=== PATIENT | female | born 1995 | race Two or more races ===

== ENCOUNTER 2018-07-02 21:27 | Emergency (ER) | payer OTHER ==
[~2018-07-02] VITALS: Ht 165.1 cm; Wt 65.8 kg
[2018-07-02 21:50] VITALS: BP 118/59
[2018-07-02 22:20] LABS: APPEARANCE,URINE Clear (CLEAR); BILIRUBIN,URINE Negative (NEGATIVE); BLOOD, URINE Trace-intact Ery/uL (NEGATIVE); COLOR,URINE Yellow (YELLOW); KETONES,URINE 40 (NEGATIVE); LEUKOCYTE ESTERASE ,URINE Trace (NEGATIVE); NITRITE, URINE Negative (NEGATIVE); PH,URINE 5.5 (5.0-8.0); PROTEIN,URINE Negative (NEGATIVE); UGLUCOSE Negative (NEGATIVE); UROBILINOGEN,URINE 0.2 EU/dL (0.2)
[2018-07-03 00:06] LABS: BACTERIA,URINE Few /HPF (None Seen); RBC,URINE 0-2 /HPF (0-2); SQUAMOUS EPITHELIAL CELL,UR Few /HPF (None Seen)
== END 2018-07-02 23:19 | disposition home or self-care (01) ==
LOC: ER 21:31
DX: R30.0 Dysuria (principal)
CPT/HCPCS: 81000-TC; 84703-TC; 87086-TC; 87186-TC

== ENCOUNTER 2020-11-12 16:50 | Emergency (ER) | payer OTHER ==
[~2020-11-12] VITALS: Ht 165.1 cm; Wt 79.8 kg
[2020-11-12] MEDS ORDERED: LIDOCAINE 1%-EPI 1:100,000 20 ML VIAL ONE (17:49)
[2020-11-12] MEDS ORDERED: TDAP [DIPH/PERTUSSIS/TET] 0.5 ML VIAL IM ONE ×2 (18:00→18:20)
[2020-11-12] MEDS ORDERED: TRAMADOL HCL 50 MG TABLET PO ONE (18:00)
--- NOTE | 2020-11-12 18:00 | NUR ---
BIB SISTER C/O LOWER BACK LUMP STARTED FRIDAY. RATES PAIN 12/31. WILL CONTINUE TO MONITOR THE PATIENT.
--- NOTE | 2020-11-12 18:10 | NUR ---
URINE COLLECTED AND SENT TO THE LAB
[2020-11-12] MEDS ORDERED: TRAMADOL HCL 50 MG TABLET ONE (18:20)
[2020-11-12] MEDS ORDERED: SULF1TAB48 PO (18:51)
[2020-11-12] MEDS ORDERED: TRAM50TA2 PO (18:51)
[2020-11-12 19:32] VITALS: BP 120/60
--- NOTE | 2020-11-12 19:32 | NUR ---
Patient discharged to home in stable condition. Written and verbal after care instructions given. Patient verbalizes understanding of instruction.
== END 2020-11-12 19:33 | disposition home or self-care (01) ==
LOC: ER 16:54
DX: L05.01 Pilonidal cyst with abscess (principal)
CPT/HCPCS: 10080; 90471; 90715; 99283; A6403; A6407; J3490

== ENCOUNTER 2020-11-14 19:13 | Emergency (ER) | payer OTHER ==
[~2020-11-14] VITALS: Ht 165.1 cm; Wt 79.8 kg
[~2020-11-14 19:13] MED LIST: SULF1TAB48 PO; TRAM50TA2 PO
[2020-11-14 19:15] VITALS: BP 109/67
--- NOTE | 2020-11-14 19:25 | NUR ---
PT BIBS WITH C/O WOUND CHECK TOP OF BUTTOCK ABSCESS (PILONIDAL CYST). PT ALERT AND ORIENTED X3. WITH SPONTANEOUS NON LABORED BREATHING.
--- NOTE | 2020-11-14 19:52 | NUR ---
Patient discharged to home in stable condition. Written and verbal after care instructions given. Patient verbalizes understanding of instruction.
== END 2020-11-14 19:52 | disposition home or self-care (01) ==
LOC: ER 19:15
DX: Z48.01 Encounter for change or removal of surgical wound dressing (principal); Z79.899 Other long term (current) drug therapy
CPT/HCPCS: 99281; A6403

== ENCOUNTER 2022-02-11 18:20 | Emergency (ER) | payer OTHER ==
[~2022-02-11] VITALS: Ht 165.1 cm; Wt 86.2 kg
[2022-02-11] MEDS ORDERED: ACETAMINOPHEN 325 MG TABLET PO ONE (22:00)
[2022-02-11] MEDS ORDERED: GUAIFENESIN/D-METHORPHAN HB 5 ML UDC PO ONE (22:00)
[2022-02-11] MEDS ORDERED: GUAIFENESIN/D-METHORPHAN HB 5 ML UDC ONE (22:28)
[2022-02-11] MEDS ORDERED: ACETAMINOPHEN 325 MG TABLET ONE (22:28)
[2022-02-11] MEDS ORDERED: GUAI100S11 GT (23:34)
[2022-02-11] MEDS ORDERED: ACET-73 PO (23:34)
--- NOTE | 2022-02-11 23:37 | NUR ---
Patient discharged to home in stable condition. Written and verbal after care instructions given. Patient verbalizes understanding of instruction.
[2022-02-11 23:38] VITALS: BP 121/77
== END 2022-02-11 23:38 | disposition home or self-care (01) ==
LOC: ER 18:23
DX: J20.8 Acute bronchitis due to other specified organisms (principal); B34.9 Viral infection, unspecified; Z20.822 Contact with and (suspected) exposure to COVID-19
CPT/HCPCS: 99284; 71045; 87426; C9803